=== PATIENT | female | born 1970 | race Caucasian/White ===

== ENCOUNTER → 2017-08-15 | Outpatient (CLI) | payer OTHER ==
[2015-02-22 15:11] VITALS: BP 141/86
[~2017-08-15] MED LIST: AMIT25TA PO; ASCO10002 PO; ESOM20CA30 PO; MULT1TAB52 PO
--- NOTE | 2017-08-15 12:28 | KCIC ---
Examination: MRI left shoulder without contrast HISTORY: History of osteoarthritis left acromioclavicular joint, left shoulder pain COMPARISON: None available TECHNIQUE: Multiplanar, multisequence MR imaging of the left shoulder were performed without contrast FINDINGS: The long head of biceps tendon is within the bicipital groove. The attachment of the long head of biceps tendon to the glenoid anchor grossly appears intact. Minimal amount of fluid identified in the tendon sheath of the long head of the biceps. The visualized subscapularis tendon, supraspinatus, infraspinatus tendon grossly appears intact. There is mild increased signal identified in the subscapularis, supraspinatus, infraspinatus tendon likely mild tendinosis. The visualized labrum grossly appears unremarkable. Moderate degenerative changes identified in the acromioclavicular joint. Acromion is type II with the inferior aspect of the acromion abutting the superior aspect of the supraspinatus tendon. The muscle bulk grossly appears unremarkable. There is mild obscuration of fat in the interval. IMPRESSION: 1. Mild tendinosis the rotator cuff. 2. Moderate degenerative changes acromioclavicular joint. The inferior aspect of the acromion abuts the superior aspect of the supraspinatus tendon. Correlate for impingement. 3. Minimal obscuration of fat in the rotator interval. Correlate for adhesive capsulitis. Electronically signed by: Jason Steven MD (08/15/2017 12:25 PM) [facility] [place]
== END | disposition home or self-care (01) ==
LOC: KCIC MRI 10:49
PROVIDERS: ATTEND Orthopaedic Surgery
DX: M19.012 Primary osteoarthritis, left shoulder (principal)
CPT/HCPCS: 73221

== ENCOUNTER → 2020-04-18 | Outpatient (CLI) | payer BC, OTHER ==
[2018-09-16 12:00] VITALS: BP 98/56
[~2020-04-18] MED LIST changes: +ASCO100019 PO; -ASCO10002 PO; +ASPI-630 PO; +ASPI325T11 PO; +ATOR40TA59 PO; +CALC-102 PO; +CITA40TA5 PO; +CLOP75TA PO; +EMPA25TA PO; +ESTR1PAT10 TP; +FENO160T PO; +FOLI1TAB35 PO; +GLIP5TAB10 PO; +INSU100I13 SQ; +ISOS30TA4 PO; +METF10007 PO; +METH-364 PO; +METO25TA4 PO; +MULT-445 PO; -MULT1TAB52 PO; +OMEG1CAP6 PO; +OMEP40CA45 PO; +PROG100C15 PO
--- NOTE | 2020-04-18 11:12 | CARD ---
MR#: [id number] Date of Study: 04/18/2020 Ordering Physician: JEM MURCIA, Referring Physician: JEM MURCIA, Tech: Stephanie Gruber [facility] APPROVED REPORT EXAM: Two-dimensional and M-mode echocardiogram with Doppler and color Doppler. Other Information Quality : GoodHR: 88bpm Rhythm : NSR INDICATION Dizziness and Vertigo RISK FACTORS Hyperlipidemia Diabetes 2D DIMENSIONS RVDd2.7 (2.9-3.5cm)Left Atrium(2D)4.0 (1.6-4.0cm) IVSd1.0 (0.7-1.1cm)Aortic Root(2D)3.2 (2.0-3.7cm) LVDd3.7 (3.9-5.9cm)LVOT Diameter2.1 (1.8-2.4cm) PWd1.0 (0.7-1.1cm)LVDs2.5 (2.5-4.0cm) FS (%) 32.0 %SV35.0 ml LVEF(%)60.9 (>50%) Aortic Valve AoV Peak Abner.115.8cm/sAoV VTI23.2cm AO Peak GR.5.4mmHgLVOT Peak Abner.110.9cm/s AO Mean GR.3mmHgAVA (VMAX)3.30cm2 Mitral Valve MV E Uusxnemw11.0cm/sMV DECEL [id number] MV A Nearxorh56.3cm/sE/A Ratio0.8 MV A [id number] Pulmonary Valve PV Peak Ebmzouig43.6cm/s Pulmonary Vein S1 Vlyssnwl43.9cm/sD2 Otijsdsp61.4cm/s PVa [id number] LEFT VENTRICLE The left ventricle is normal size. There is normal left ventricular wall thickness. The left ventricu lar systolic function is normal. The Ejection fraction is 60-65% There is normal LV segmental wall mo tion. The left ventricular diastolic function and filling is normal for age. RIGHT VENTRICLE The right ventricle is normal size. There is normal right ventricular wall thickness. The right ventr icular systolic function is normal. ATRIA The left atrium size is normal. The right atrium size is normal. The interatrial septum is intact wit h no evidence for an atrial septal defect or patent foramen ovale as noted on 2-D or Doppler imaging. AORTIC VALVE The aortic valve is normal in structure and function. Doppler and Color Flow revealed no significant aortic regurgitation. There is no significant aortic valvular stenosis. MITRAL VALVE The mitral valve is normal in structure and function. There is no evidence of mitral valve prolapse. There is no mitral valve stenosis. Doppler and Color Flow revealed no mitral valve regurgitation note d. TRICUSPID VALVE The tricuspid valve is normal in structure and function. Doppler and Color Flow revealed no tricuspid valve regurgitation noted. There is no tricuspid valve stenosis. PULMONIC VALVE The pulmonary valve is normal in structure and function. Doppler and Color Flow revealed no pulmonic valvular regurgitation. GREAT VESSELS The aortic root is normal in size. The ascending aorta is normal in size. The pulmonary artery is nor mal. The IVC is normal in size and collapses >50% with inspiration. PERICARDIAL EFFUSION There is no evidence of significant pericardial effusion. Critical Notification Critical Value: No <Conclusion> The left ventricular systolic function is normal. The Ejection fraction is 60-65% There is normal LV segmental wall motion. There is no evidence of significant pericardial effusion. Signed by : Hang Gama, Electronically Approved : 04/18/2020 11:11:40
== END ==
LOC: ECHO 09:48
PROVIDERS: ATTEND Internal Medicine Cardiovascular Disease
DX: I25.10 Atherosclerotic heart disease of native coronary artery without angina pectoris (principal)
CPT/HCPCS: 93306

== ENCOUNTER 2020-07-09 16:55 | Inpatient (IN) | payer BC, OTHER ==
[~2020-07-09] VITALS: Ht 162.6 cm; Wt 72.1 kg
--- NOTE | 2020-07-09 17:27 | PHYS DOC ---
Past Medical History Past Medical History: Anxiety, CAD, Diabetes-Type II, Hypertension Additional Past Medical Histor: sleep issues Past Surgical History: Appendectomy Additional Past Surgical Histo: tubal ablation Smoking Status: Current Every Day Smoker Alcohol Use: None Drug Use: None General Adult EDM: Chief Complaint: CHEST PAIN HPI: HPI: Patient is a 50 year old female who presented to ER today for evaluation of nausea and chest pressure was seen earlier this morning. Patient is still having pressure sensation in her chest. Patient has history of acid reflux, diabetic, history of coronary disease. Patient had NSTEMI more than a year ago, he was taken to the [facility], she was found to have some blockage however it was not significant enough to be stented. 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 Patient denies any cough or fever, no trouble breathing. She was exposed to a coworker who was positive for COVID-19 2 weeks ago. Patient was tested negative for COVID-19 1 week ago. Review of Systems: Review of Systems: Constitutional: Denies fever or chills. [] Eyes: Denies change in visual acuity. [] HENT: Denies nasal congestion or sore throat. [] Respiratory: Denies cough or shortness of breath. [] Cardiovascular: Positive for chest pain, no edema. GI: Denies abdominal pain, positive for nausea, no vomiting, bloody stools or diarrhea. [] : Denies dysuria. [] Musculoskeletal: Denies back pain or joint pain. [] Integument: Denies rash. [] Neurologic: Denies headache, focal weakness or sensory changes. [] Endocrine: Denies polyuria or polydipsia. [] Lymphatic: Denies swollen glands. [] Psychiatric: Denies depression or anxiety. [] Heart Score: HEART Score for Chest Pain: HEART Score for Chest Pain Response (Comments) Value History Moderately Suspicious 1 ECG Normal 0 Age >45 - < 65 1 Risk Factors >3 Risk Factors or Hx CAD 2 Troponin < Normal Limit 0 Total 4 Risk Factors: Risk Factors: DM, Current or recent (<one month) smoker, HTN, HLP, family hi story of CAD, obesity. Risk Scores: Score 0 - 3: 2.5% MACE over next 6 weeks - Discharge Home Score 4 - 6: 20.3% MACE over next 6 weeks - Admit for Clinical Observation Score 7 - 10: 72.7% MACE over next 6 weeks - Early Invasive Strategies Current Medications: Current Medications Medications (Trade) Dose Ordered Sig/[facility] Start Time Stop Time Status Last Admin Dose Admin Aspirin (Aspirin Chewable) 324 mg 1X ONCE 07/09/20 17:30 07/09/20 17:31 Nitroglycerin (Nitrostat) 0.4 mg PRN Q5MIN PRN 07/09/20 17:30 07/10/20 17:29 Allergies: Allergies: Allergies Coded Allergies Type Severity Reaction Last Updated Verified pear Allergy Severe Swelling 02/22/15 Yes dulaglutide Allergy Intermediate 09/12/18 Yes morphine Allergy Intermediate 09/12/18 Yes Physical Exam: PE: Constitutional: Well developed, well nourished, no acute distress, non-toxic appearance. [] HENT: Normocephalic, atraumatic, bilateral external ears normal, oropharynx moist, no oral exudates, nose normal. [] Eyes: PERRLA, EOMI, conjunctiva normal, no discharge. [] Neck: Normal range of motion, no tenderness, supple, no stridor. [] Cardiovascular:Heart rate regular rhythm, no murmur [] Lungs & Thorax: Bilateral breath sounds clear to auscultation [] Abdomen: Bowel sounds normal, soft, no tenderness, no masses, no pulsatile mass es. [] Skin: Warm, dry, no erythema, no rash. [] Back: No tenderness, no CVA tenderness. [] Extremities: No tenderness, no cyanosis, no clubbing, ROM intact, no edema. [] Neurologic: Alert and oriented X 3, normal motor function, normal sensory function, no focal deficits noted. [] Psychologic: Affect normal, judgement normal, mood normal. [] Current Patient Data: Labs: Laboratory Tests Test 07/09/20 17:10 White Blood Count 12.2 x10^3/uL Red Blood Count 4.52 x10^6/uL Hemoglobin 14.0 g/dL Hematocrit 41.5 % Mean Corpuscular Volume 92 fL Mean Corpuscular Hemoglobin 31 pg Mean Corpuscular Hemoglobin Concent 34 g/dL Red Cell Distribution Width 13.4 % Platelet Count 355 x10^3/uL Neutrophils (%) (Auto) 51 % Lymphocytes (%) (Auto) 37 % Monocytes (%) (Auto) 9 % Eosinophils (%) (Auto) 3 % Basophils (%) (Auto) 1 % Neutrophils # (Auto) 6.2 x10^3/uL Lymphocytes # (Auto) 4.5 x10^3/uL Monocytes # (Auto) 1.0 x10^3/uL Eosinophils # (Auto) 0.4 x10^3/uL Basophils # (Auto) 0.1 x10^3/uL Prothrombin Time 11.9 SEC Prothromb Time International Ratio 0.9 Sodium Level 135 mmol/L Potassium Level 4.0 mmol/L Chloride Level 98 mmol/L Carbon Dioxide Level 25 mmol/L Anion Gap 12 Blood Urea Nitrogen 15 mg/dL Creatinine 0.8 mg/dL Estimated GFR (Cockcroft-Gault) 76.2 BUN/Creatinine Ratio 19 Glucose Level 271 mg/dL Calcium Level 10.2 mg/dL Magnesium Level 2.0 mg/dL Total Bilirubin 0.1 mg/dL Aspartate Amino Transf (AST/SGOT) 12 U/L Alanine Aminotransferase (ALT/SGPT) 20 U/L Alkaline Phosphatase 84 U/L Troponin I Quantitative < 0.017 ng/mL [id number]-[id number]-Type Natriuretic Peptide 12 pg/mL Total Protein 7.8 g/dL Albumin 4.0 g/dL Albumin/Globulin Ratio 1.1 Lipase 151 U/L Current Medications Medications (Trade) Dose Ordered Sig/[place] Route PRN Reason Start Time Stop Time Status Last Admin Dose Admin Aspirin (Aspirin Chewable) 324 mg 1X ONCE PO 07/09/20 17:30 07/09/20 17:31 DC 07/09/20 17:51 Nitroglycerin (Nitrostat) 0.4 mg PRN Q5MIN PRN SL CP RATING > 09/0407/09/20 17:30 07/10/20 17:29 07/09/20 17:53 Ketorolac Tromethamine (Toradol 15mg Vial) 15 mg 1X ONCE IVP 07/09/20 18:00 07/09/20 18:01 DC 07/09/20 18:00 Ondansetron HCl (Zofran) 4 mg 1X ONCE IVP 07/09/20 18:00 07/09/20 18:01 DC 07/09/20 18:00 EKG: EKG: EKG was done at 1705, heart rate of 81 beats per minutes, sinus rhythm, no ST segment elevation, normal QT and QTc interval. Radiology/Procedures: Radiology/Procedures: [][facility] [address] [place] [address] IMAGING REPORT Signed PATIENT: RADU RAMON EACCOUNT: [id number] : 1970 LOCATION: ER AGE: 50 SEX: F EXAM STATUS: PRE ER ORD. PHYSICIAN: TIMUR OTERO DO REASON: chest pain PROCEDURE: PORTABLE CHEST 1V Exam: Chest one view INDICATION: Chest pain TECHNIQUE: Frontal view of the chest Comparisons: 09/12/2018 FINDINGS: The cardiomediastinal silhouette and pulmonary vessels are within normal limits. The lung and pleural spaces are clear. IMPRESSION: No acute cardiopulmonary process. Electronically signed by: Brodie Meredith MD (07/09/2020 5:35 PM) [id number] DICTATED and SIGNED BY: BRODIE MEREDITH MD DATE: 07/09/20 1735 Course & Med Decision Making: Course & Med Decision Making Pertinent Labs and Imaging studies reviewed. (See chart for details) Patient is a 50-year-old female who presented to ER with substernal chest pain, her EKG and lab work came back normal so far. With her risks, will admit her to hospital for observation. Discussed with Dr. Connors. Isaak Disclaimer: Isaak Disclaimer: This electronic medical record was generated, in whole or in part, using a voice recognition dictation system. Departure Departure Impression: Primary Impression: Chest pain Disposition: ADMITTED INPT THIS HOSP Condition: STABLE Referrals: UNKNOWN PCP NAME (PCP) TIMUR OTERO DO Jul 09, 2020 17:27
[2020-07-09] MEDS ORDERED: ASPIRIN CHEWABLE 81 MG TABLET. PO ONE (17:30)
[2020-07-09] MEDS ORDERED: NITROGLYCERIN SUBLINGUAL 0.4 MG BOTTLE OF 25. SL PRN (17:30)
[2020-07-09 17:31] LABS: BASO # 0.1 x10^3/uL (0.0-0.2); BASO % 1 % (0-3); EOS # 0.4 x10^3/uL (0.0-0.7); EOS % 3 % (0-3); HEMATOCRIT 41.5 % (36.0-47.0); LYMPH # 4.5 x10^3/uL (1.0-4.8); LYMPH % 37 % (24-48); MEAN CORPUSCULAR HEMOGLOBIN 31 pg (25-35); MEAN CORPUSCULAR HGB CONC 34 g/dL (31-37); MEAN CORPUSCULAR VOLUME 92 fL (79-100); MONO % 9 % (0-9); NEUT # 6.2 x10^3/uL (1.8-7.7); NEUT % 51 % (31-73); PLATELET COUNT 355 x10^3/uL (140-400); RED BLOOD COUNT 4.52 x10^6/uL (3.50-5.40); RED CELL DISTRIBUTION WIDTH 13.4 % (11.5-14.5); WHITE BLOOD COUNT 12.2 x10^3/uL (4.0-11.0)
[2020-07-09 17:38] LABS: PROTHROMBIN TIME PATIENT 11.9 SEC (11.7-14.0)
--- NOTE | 2020-07-09 17:38 | RAD ---
Exam: Chest one view INDICATION: Chest pain TECHNIQUE: Frontal view of the chest Comparisons: 09/12/2018 FINDINGS: The cardiomediastinal silhouette and pulmonary vessels are within normal limits. The lung and pleural spaces are clear. IMPRESSION: No acute cardiopulmonary process. Electronically signed by: Brodie Escobedo MD (07/09/2020 5:35 PM) [id number]
[2020-07-09 17:40] LABS: CALCIUM 10.2 mg/dL (8.5-10.1); CREATININE 0.8 mg/dL (0.6-1.0); GFR 76.2
[2020-07-09 17:46] LABS: ALBUMIN/GLOBULIN RATIO 1.1 (1.0-1.7); TOTAL BILIRUBIN 0.1 mg/dL (0.2-1.0); TOTAL PROTEIN 7.8 g/dL (6.4-8.2)
[2020-07-09 17:55] LABS: BILIRUBIN,URINE NEGATIVE (NEG); CLARITY,URINE CLEAR; COLOR,URINE YELLOW; NITRITE,URINE NEGATIVE (NEG); PH,URINE 6.5 (<5.0-8.0); PROTEIN,URINE NEGATIVE (NEG-TRACE); UROBILINOGEN,URINE 0.2 mg/dL (0.2 mg/dL)
[2020-07-09] MEDS ORDERED: KETOROLAC 15 MG/ML VIAL. IVP ONE (18:00)
[2020-07-09] MEDS ORDERED: ONDANSETRON PF 4 MG/2 ML VIAL. IVP ONE (18:00)
[2020-07-09 18:05] LABS: BACTERIA,URINE 0 /HPF (0-FEW); RBC,URINE 0 /HPF (0-2); WBC,URINE 0 /HPF (0-4); YEAST,URINE PRESENT /HPF
[2020-07-09] MEDS ORDERED: ONDANSETRON PF 4 MG/2 ML VIAL. IV PRN (18:15)
[2020-07-09] MEDS ORDERED: DEXTROSE 50% 25 GM / 50ML DISP.SYRIN. IV PRN (19:45)
[2020-07-09] MEDS: hydrOXYzine 25 MG TABLET PO PRN (19:52)
[2020-07-09] MEDS: methIMAzole 10 MG TABLET PO SCH (21:20)
[2020-07-09] MEDS: METOPROLOL TART IMMED RELEASE 25 MG TABLET. PO SCH (21:20)
[2020-07-09] MEDS: ATORVASTATIN CALCIUM 40 MG TABLET. PO SCH (21:20)
[2020-07-09] MEDS: ENOXAPARIN 40 MG/0.4 ML SYRINGE. SQ SCH (21:21)
[2020-07-09] MEDS: glipiZIDE 5 MG TABLET PO SCH (21:21)
[2020-07-09] MEDS: ZOLPIDEM 5 MG TABLET. PO PRN ×2 (21:34→21:55)
[2020-07-09] MEDS: INSULIN GLARGINE SYRINGE. SQ SCH (21:37)
[2020-07-09 22:43] LABS: BARBITURATES NEG (NEG); BENZODIAZEPINES NEG (NEG); CANNABINOIDS NEG (NEG); COCAINE NEG (NEG); METHADONE NEG (NEG); OPIATES NEG (NEG); PHENCYCLIDINE NEG (NEG)
[2020-07-09 22:44] LABS: AMPHETAMINE/METHAMPHETAMINE NEG (NEG)
[2020-07-10 03:03] VITALS: BP 123/57
--- NOTE | 2020-07-10 06:35 | PDOC1 ---
History and Physical Date of Admission Date of Admission DATE: 07/10/20 TIME: 06:34 Identification/Chief Complaint Chief Complaint Chest pain Source Source: Patient History of Present Illness History of Present Illness Patient is a 50-year-old female with past medical history of NSTEMI, type 2 diabetes, hyperlipidemia, anxiety, who presents to the ED with complaints of chest pain since yesterday morning. Patient reports constant chest pressure 8/10, with associated nausea. She states her symptoms began while at rest and is worse when laying flat. Her retail custodial associate is Dr. Rangel. She received aspirin 324 mg upon arrival. Of note she states she was exposed to a coworker who was tested positive for COVID-19 2 weeks ago. Patient was tested for COVID- 19 1 week ago and reportedly negative. She denies any shortness of breath, cough, fever, or diarrhea. We have been asked admit patient for further management. WBC 12.2, CBG 371, troponin <0.017 x 2 Past Medical History Cardiovascular: HTN, Hyperlipidemia Pulmonary: No pertinent hx CENTRAL NERVOUS SYSTEM: Other GI: GERD Heme/Onc: No pertinent hx Hepatobiliary: No pertinent hx Psych: Depression Musculoskeletal: Osteoarthritis Rheumatologic: No pertinent hx Infectious disease: No pertinent hx Renal/: No pertinent hx Endocrine: Diabetes, Hyperthyroidism Past Surgical History Past Surgical History: Appendectomy, Tubal Ligation Family History Family History: Coronary Artery Disease, Diabetes, Heart Disease, Stroke Social History Smoke: 1 pack per day ALCOHOL: none Drugs: None Current Problem List Problem List Problems Medical Problems: (1) Chest pain Status: Acute Current Medications Current Medications Current Medications Aspirin (Aspirin Chewable) 324 mg 1X ONCE PO Last administered on 07/09/20at 17:51; Start 07/09/20 at 17:30; Stop 07/09/20 at 17:31; Status DC Nitroglycerin (Nitrostat) 0.4 mg PRN Q5MIN PRN SL CP RATING > 1/10 Last administered on 07/09/20at 17:53; Start 07/09/20 at 17:30; Stop 07/10/20 at 17:29 Ketorolac Tromethamine (Toradol 15mg Vial) 15 mg 1X ONCE IVP Last administered on 07/09/20at 18:00; Start 07/09/20 at 18:00; Stop 07/09/20 at 18:01; Status DC Ondansetron HCl (Zofran) 4 mg 1X ONCE IVP Last administered on 07/09/20at 18:00; Start 07/09/20 at 18:00; Stop 07/09/20 at 18:01; Status DC Ondansetron HCl (Zofran) 4 mg PRN Q8HRS PRN IV NAUSEA/VOMITING; Start 07/09/20 at 18:15; Stop 07/10/20 at 18:14 Aspirin (Aspirin Chewable) 81 mg DAILY PO ; Start 07/10/20 at 09:00 Atorvastatin Calcium (Lipitor) 40 mg QHS PO Last administered on 07/09/20at 21:20; Start 07/09/20 at 21:00 Clopidogrel Bisulfate (Plavix) 75 mg DAILY PO ; Start 07/10/20 at 09:00 Glipizide (Glucotrol) 5 mg BID PO Last administered on 07/09/20at 21:21; Start 07/09/20 at 21:00 Isosorbide Mononitrate (Imdur) 30 mg DAILY PO ; Start 07/10/20 at 09:00 Methimazole (Tapazole) 10 mg BID PO Last administered on 07/09/20at 21:20; Start 07/09/20 at 21:00 Metoprolol Tartrate (Lopressor) 25 mg BID PO Last administered on 07/09/20at 21:20; Start 07/09/20 at 21:00 Fish Oil (Fish Oil) 1,000 mg DAILY PO ; Start 07/10/20 at 09:00 Fenofibrate (Lofibra) 134 mg DAILY PO ; Start 07/10/20 at 09:00 Insulin Glargine (Lantus Syringe) 20 unit QHS SQ Last administered on 07/09/20at 21:37; Start 07/09/20 at 21:00 Pantoprazole Sodium (Protonix) 40 mg DAILYAC PO ; Start 07/10/20 at 07:30 Hydroxyzine HCl (Atarax) 25 mg PRN Q6HRS PRN PO ITCHING Last administered on 07/09/20at 19:52; Start 07/09/20 at 19:45 Insulin Human Lispro (HumaLOG) 0-7 UNITS TIDWMEALS SQ ; Start 07/10/20 at 08:00 Dextrose (Dextrose 50%-Water Syringe) 12.5 gm PRN Q15MIN PRN IV SEE COMMENTS; Start 07/09/20 at 19:45 Enoxaparin Sodium (Lovenox 40mg Syringe) 40 mg Q24H SQ Last administered on 07/09/20at 21:21; Start 07/09/20 at 21:00 Zolpidem Tartrate (Ambien) 5 mg PRN QHS PRN PO INSOMNIA Last administered on 07/09/20at 21:55; Start 07/09/20 at 20:00 Active Scripts Active Lantus Solostar (Insulin Glargine,Hum.rec.anlog) 100 Unit/1 Ml Insuln.pen 20 Unit SQ QHS Metoprolol Tartrate 25 Mg Tablet 25 Mg PO BID MDD 1 Isosorbide Mononitrate Er (Isosorbide Mononitrate) 30 Mg Tab.er.24h 30 Mg PO DAILY MDD 1 Atorvastatin Calcium 40 Mg Tablet 40 Mg PO QHS MDD 1 Reported Aspirin 81 Mg Tab.chew 81 Mg PO DAILY 30 Days Vivelle-Dot (Estradiol) 1 Each Patch.tdsw 1 Patch TP TWICE WEEKLY Glipizide 5 Mg Tablet 1 Tab PO BID Jardiance (Empagliflozin) 25 Mg Tablet 25 Mg PO DAILY Prometrium (Progesterone,Micronized) 100 Mg Capsule 1 Cap PO DAILY Omeprazole 40 Mg Capsule.dr 1 Cap PO DAILY Metformin Hcl 1,000 Mg Tablet 1,000 Mg PO DAILYWBKFT Methimazole 10 Mg Tablet 10 Mg PO BID Fenofibrate 160 Mg Tablet 1 Tab PO DAILY Citalopram Hbr (Citalopram Hydrobromide) 40 Mg Tablet 1 Tab PO DAILY Citracal + Bone Density Tablet (Calcium Crb&Cit/D3/Min34/Jenn) 1 Each Tablet 1 Each PO DAILY Allergies Allergies: Coded Allergies: pear (Verified Allergy, Severe, Swelling, 02/22/15) dulaglutide (Verified Allergy, Intermediate, 09/12/18) morphine (Verified Allergy, Intermediate, 09/12/18) ROS Review of System GENERAL: No history of weight change, weakness or fevers. SKIN: No bruising, hair changes or rashes. EYES: No blurred, double or loss of vision. NOSE AND THROAT: No history of nosebleeds, hoarseness or sore throat. HEART: Chest pain. Denies palpitations. LUNGS: Denies cough, hemoptysis, wheezing or shortness of breath. GASTROINTESTINAL: Nausea. Denies vomiting, abdominal pain. GENITOURINARY: Denies dysuria, frequency, urgency, hematuria. NEUROLOGIC: Denies history of numbness, tingling, tremor or weakness. PSYCHIATRIC: Denies anxiety, denies depression. ENDOCRINE: No history of heat or cold intolerance, polyuria or polydipsia. EXTREMITIES: Denies muscle weakness, joint pain, pain on walking or stiffness. Physical Exam Physical Exam General: Alert, Oriented X3, Cooperative, No acute distress HEENT: PERRLA, EOMI Lungs: Clear to auscultation, Normal air movement Heart: RRR, no murmurs Cardiovascular: S1, S2 Abdomen: Normal bowel sounds, Soft, No tenderness Extremities: No clubbing, No cyanosis Skin: No rashes, No significant lesion Neuro: Normal speech, Normal tone, Sensation intact Psych/Mental Status: Mental status NL, Mood NL Vitals Vitals Vital Signs Date Time Temp Pulse Resp B/P (MAP) Pulse Ox O2 Delivery O2 Flow Rate FiO2 07/10/20 03:03 98.5 74 16 123/57 (79) 95 Room Air 98.5 Labs Labs Laboratory Tests Test 07/09/20 17:10 07/09/20 17:47 07/09/20 21:30 07/09/20 22:00 White Blood Count 12.2 x10^3/uL (4.0-11.0) Red Blood Count 4.52 x10^6/uL (3.50-5.40) Hemoglobin 14.0 g/dL (12.0-15.5) Hematocrit 41.5 % (36.0-47.0) Mean Corpuscular Volume 92 fL (79-100) Mean Corpuscular Hemoglobin 31 pg (25-35) Mean Corpuscular Hemoglobin Concent 34 g/dL (31-37) Red Cell Distribution Width 13.4 % (11.5-14.5) Platelet Count 355 x10^3/uL (140-400) Neutrophils (%) (Auto) 51 % (31-73) Lymphocytes (%) (Auto) 37 % (24-48) Monocytes (%) (Auto) 9 % (0-9) Eosinophils (%) (Auto) 3 % (0-3) Basophils (%) (Auto) 1 % (0-3) Neutrophils # (Auto) 6.2 x10^3/uL (1.8-7.7) Lymphocytes # (Auto) 4.5 x10^3/uL (1.0-4.8) Monocytes # (Auto) 1.0 x10^3/uL (0.0-1.1) Eosinophils # (Auto) 0.4 x10^3/uL (0.0-0.7) Basophils # (Auto) 0.1 x10^3/uL (0.0-0.2) Prothrombin Time 11.9 SEC (11.7-14.0) Prothromb Time International Ratio 0.9 (0.8-1.1) Sodium Level 135 mmol/L (136-145) Potassium Level 4.0 mmol/L (3.5-5.1) Chloride Level 98 mmol/L (98-107) Carbon Dioxide Level 25 mmol/L (21-32) Anion Gap 12 (6-14) Blood Urea Nitrogen 15 mg/dL (7-20) Creatinine 0.8 mg/dL (0.6-1.0) Estimated GFR (Cockcroft-Gault) 76.2 BUN/Creatinine Ratio 19 (6-20) Glucose Level 271 mg/dL (70-99) Calcium Level 10.2 mg/dL (8.5-10.1) Magnesium Level 2.0 mg/dL (1.8-2.4) Total Bilirubin 0.1 mg/dL (0.2-1.0) Aspartate Amino Transf (AST/SGOT) 12 U/L (15-37) Alanine Aminotransferase (ALT/SGPT) 20 U/L (14-59) Alkaline Phosphatase 84 U/L (46-116) Troponin I Quantitative < 0.017 ng/mL (0.000-0.055) UD-Pdj-D-Type Natriuretic Peptide 12 pg/mL (0-124) Total Protein 7.8 g/dL (6.4-8.2) Albumin 4.0 g/dL (3.4-5.0) Albumin/Globulin Ratio 1.1 (1.0-1.7) Lipase 151 U/L (73-393) Thyroid Stimulating Hormone (TSH) 0.688 uIU/mL (0.358-3.74) Urine Collection Type Unknown Urine Color Yellow Urine Clarity Clear Urine pH 6.5 (<5.0-8.0) Urine Specific [place] 1.015 (1.000-1.030) Urine Protein Negative mg/dL (NEG-TRACE) Urine Glucose (UA) >=1000 mg/dL (NEG) Urine Ketones (Stick) Negative mg/dL (NEG) Urine Blood Negative (NEG) Urine Nitrite Negative (NEG) Urine Bilirubin Negative (NEG) Urine Urobilinogen Dipstick 0.2 mg/dL (0.2 mg/dL) Urine Leukocyte Esterase Negative (NEG) Urine RBC 0 /HPF (0-2) Urine WBC 0 /HPF (0-4) Urine Squamous Epithelial Cells Occ /LPF Urine Bacteria 0 /HPF (0-FEW) Urine Yeast Present /HPF Glucose (Fingerstick) 371 mg/dL (70-99) Urine Opiates Screen Neg (NEG) Urine Methadone Screen Neg (NEG) Urine Barbiturates Neg (NEG) Urine Phencyclidine Screen Neg (NEG) Urine Amphetamine/Methamphetamine Neg (NEG) Urine Benzodiazepines Screen Neg (NEG) Urine Cocaine Screen Neg (NEG) Urine Cannabinoids Screen Neg (NEG) Urine Ethyl Alcohol Neg (NEG) Test 07/09/20 23:05 Troponin I Quantitative < 0.017 ng/mL (0.000-0.055) Laboratory Tests Test 07/09/20 17:10 07/09/20 17:47 07/09/20 21:30 07/09/20 22:00 White Blood Count 12.2 x10^3/uL (4.0-11.0) Red Blood Count 4.52 x10^6/uL (3.50-5.40) Hemoglobin 14.0 g/dL (12.0-15.5) Hematocrit 41.5 % (36.0-47.0) Mean Corpuscular Volume 92 fL (79-100) Mean Corpuscular Hemoglobin 31 pg (25-35) Mean Corpuscular Hemoglobin Concent 34 g/dL (31-37) Red Cell Distribution Width 13.4 % (11.5-14.5) Platelet Count 355 x10^3/uL (140-400) Neutrophils (%) (Auto) 51 % (31-73) Lymphocytes (%) (Auto) 37 % (24-48) Monocytes (%) (Auto) 9 % (0-9) Eosinophils (%) (Auto) 3 % (0-3) Basophils (%) (Auto) 1 % (0-3) Neutrophils # (Auto) 6.2 x10^3/uL (1.8-7.7) Lymphocytes # (Auto) 4.5 x10^3/uL (1.0-4.8) Monocytes # (Auto) 1.0 x10^3/uL (0.0-1.1) Eosinophils # (Auto) 0.4 x10^3/uL (0.0-0.7) Basophils # (Auto) 0.1 x10^3/uL (0.0-0.2) Prothrombin Time 11.9 SEC (11.7-14.0) Prothromb Time International Ratio 0.9 (0.8-1.1) Sodium Level 135 mmol/L (136-145) Potassium Level 4.0 mmol/L (3.5-5.1) Chloride Level 98 mmol/L (98-107) Carbon Dioxide Level 25 mmol/L (21-32) Anion Gap 12 (6-14) Blood Urea Nitrogen 15 mg/dL (7-20) Creatinine 0.8 mg/dL (0.6-1.0) Estimated GFR (Cockcroft-Gault) 76.2 BUN/Creatinine Ratio 19 (6-20) Glucose Level 271 mg/dL (70-99) Calcium Level 10.2 mg/dL (8.5-10.1) Magnesium Level 2.0 mg/dL (1.8-2.4) Total Bilirubin 0.1 mg/dL (0.2-1.0) Aspartate Amino Transf (AST/SGOT) 12 U/L (15-37) Alanine Aminotransferase (ALT/SGPT) 20 U/L (14-59) Alkaline Phosphatase 84 U/L (46-116) Troponin I Quantitative < 0.017 ng/mL (0.000-0.055) GZ-Lsh-C-Type Natriuretic Peptide 12 pg/mL (0-124) Total Protein 7.8 g/dL (6.4-8.2) Albumin 4.0 g/dL (3.4-5.0) Albumin/Globulin Ratio 1.1 (1.0-1.7) Lipase 151 U/L (73-393) Thyroid Stimulating Hormone (TSH) 0.688 uIU/mL (0.358-3.74) Urine Collection Type Unknown Urine Color Yellow Urine Clarity Clear Urine pH 6.5 (<5.0-8.0) Urine Specific [place] 1.015 (1.000-1.030) Urine Protein Negative mg/dL (NEG-TRACE) Urine Glucose (UA) >=1000 mg/dL (NEG) Urine Ketones (Stick) Negative mg/dL (NEG) Urine Blood Negative (NEG) Urine Nitrite Negative (NEG) Urine Bilirubin Negative (NEG) Urine Urobilinogen Dipstick 0.2 mg/dL (0.2 mg/dL) Urine Leukocyte Esterase Negative (NEG) Urine RBC 0 /HPF (0-2) Urine WBC 0 /HPF (0-4) Urine Squamous Epithelial Cells Occ /LPF Urine Bacteria 0 /HPF (0-FEW) Urine Yeast Present /HPF Glucose (Fingerstick) 371 mg/dL (70-99) Urine Opiates Screen Neg (NEG) Urine Methadone Screen Neg (NEG) Urine Barbiturates Neg (NEG) Urine Phencyclidine Screen Neg (NEG) Urine Amphetamine/Methamphetamine Neg (NEG) Urine Benzodiazepines Screen Neg (NEG) Urine Cocaine Screen Neg (NEG) Urine Cannabinoids Screen Neg (NEG) Urine Ethyl Alcohol Neg (NEG) Test 07/09/20 23:05 Troponin I Quantitative < 0.017 ng/mL (0.000-0.055) Images Images Exam: Chest one view INDICATION: Chest pain TECHNIQUE: Frontal view of the chest Comparisons: 09/12/2018 FINDINGS: The cardiomediastinal silhouette and pulmonary vessels are within normal limits. The lung and pleural spaces are clear. IMPRESSION: No acute cardiopulmonary process. VTE Prophylaxis Ordered VTE Prophylaxis Devices: No VTE Pharmacological Prophylaxi: Yes Assessment/Plan Assessment/Plan Unstable angina DM2 with hyperglycemia HLD History of NSTEMI Plan: High risk cardiac patient Consult to cardiology for further management and recommendations Troponins negative x2 Will obtain stat surgical COVID-19 due to recent exposure and anticipated cardiac intervention Fentanyl as needed for pain, stated morphine allergy. Nitroglycerin, Zofran as needed Basal/prandial insulin Continue home medications FEN - Cardiac diet PPX - Lovenox FULL CODE Dispo - inpatient for above Justifications for Admission Other Justification SAM WINKLER MD Jul 10, 2020 06:35
[2020-07-10] MEDS ORDERED: fentaNYL PF VIAL 100 MCG/2 ML VIAL IVP PRN (06:45)
[2020-07-10] MEDS: hydrOXYzine 25 MG TABLET PO PRN ×3 (06:47→21:18)
[2020-07-10 07:15] VITALS: BP 128/57
[2020-07-10] MEDS: PANTOPRAZOLE 40 MG TABLET.DR. PO SCH (08:49)
[2020-07-10] MEDS: ASPIRIN CHEWABLE 81 MG TABLET. PO SCH (08:49)
[2020-07-10] MEDS: OMEGA-3 FATTY ACIDS/FISH OIL 1,000 MG CAPSULE. PO SCH (08:49)
[2020-07-10] MEDS: FENOFIBRATE,MICRONIZED 134 MG CAPSULE PO SCH (08:49)
[2020-07-10] MEDS: METOPROLOL TART IMMED RELEASE 25 MG TABLET. PO SCH ×2 (08:50→21:19)
[2020-07-10] MEDS: ISOSORBIDE MONONITRATE ER 30 MG TAB.ER.24H PO SCH (08:50)
[2020-07-10] MEDS: ENOXAPARIN 40 MG/0.4 ML SYRINGE. SQ SCH (08:51)
[2020-07-10] MEDS ORDERED: CLOPIDOGREL BISULFATE 75 MG TABLET PO SCH (09:00)
[2020-07-10] MEDS: methIMAzole 10 MG TABLET PO SCH ×2 (10:14→21:18)
[2020-07-10] MEDS: glipiZIDE 5 MG TABLET PO SCH ×2 (10:14→21:19)
[2020-07-10] MEDS: INSULIN LISPRO 300 UNITS/3 ML VIAL. SQ SCH ×3 (10:17→16:38)
[2020-07-10 10:42] VITALS: BP 105/63
[2020-07-10] MEDS: diazePAM 5 MG TABLET PO PRN ×2 (12:05→21:19)
[2020-07-10] MEDS: HYDROcodone/APAP 5/325MG 1 TAB TABLET PO PRN ×3 (12:05→21:19)
--- NOTE | 2020-07-10 14:06 | EKG ---
[facility] [address] [place] [address] Test Date: 2020-07-09 Test Time: 17:05:34 Pat Name: RADU RAMON Department: Room: 206 1 Gender: F [employer]: : 1970 Requested By: TIMUR OTERO Order Number: [id number] Reading MD: Fabian Rangel MD Measurements Intervals [place] Rate: 81 P: 45 HI: 158 QRS: -7 QRSD: 80 T: 31 QT: 360 QTc: 424 Interpretive Statements SINUS RHYTHM SEPTAL INFARCT PATTERN, NO ACUTE FINDINGS Electronically Signed On 07-11-2020 10:45:11 PUPPY SITTER by Fabian Rangel MD
[2020-07-10 14:27] VITALS: BP 115/52
--- NOTE | 2020-07-10 14:48 | PDOC2 ---
CONSULT Date of Consult Date of Consult DATE: 07/10/20 TIME: 14:42 Reason for Consult Reason for Consult: Chest pain Referring Physician Referring Physician: Dr. Connors Identification/Chief Complaint Chief Complaint Chest pain Source Source: Chart review, Patient History of Present Illness Reason for Visit: The patient is a 50-year-old female who presented to the emergency room with several hours worth of chest pain and nausea. The patient's EKG showed no acute ischemic changes. Chest x-ray showed no acute processes. Initial troponin was normal. She was treated medically and has felt better overnight with her pain resolving. She does have a history of a non-ST elevated myocardial infarction in August 2018. A catheterization at that time showed an ejection fraction of 55% with an LAD lesion of 50 to 60% with a normal FFR study. Patient was treated medically. More recently an echocardiogram on 04-18-20 showed an ejectio n fraction of 60 to 65%. Patient is resting pain-free in bed at this time. Past Medical History Cardiovascular: CAD, HTN, Hyperlipidemia Pulmonary: No pertinent hx CENTRAL NERVOUS SYSTEM: Other GI: GERD Heme/Onc: No pertinent hx Hepatobiliary: No pertinent hx Psych: Depression Musculoskeletal: Osteoarthritis Rheumatologic: No pertinent hx Infectious disease: No pertinent hx Renal/: No pertinent hx Endocrine: Diabetes, Hyperthyroidism Past Surgical History Past Surgical History: Appendectomy, Tubal Ligation Family History Family History: Coronary Artery Disease, Diabetes, Heart Disease, Stroke Social History 1 pack per day ALCOHOL: none Drugs: None Lives: with Family Current Problem List Problem List Problems Medical Problems: (1) Chest pain Status: Acute Current Medications Current Medications Current Medications Aspirin (Aspirin Chewable) 324 mg 1X ONCE PO Last administered on 07/09/20at 17:51; Start 07/09/20 at 17:30; Stop 07/09/20 at 17:31; Status DC Nitroglycerin (Nitrostat) 0.4 mg PRN Q5MIN PRN SL CP RATING > 1/10 Last administered on 07/09/20at 17:53; Start 07/09/20 at 17:30; Stop 07/10/20 at 17:29 Ketorolac Tromethamine (Toradol 15mg Vial) 15 mg 1X ONCE IVP Last administered on 07/09/20at 18:00; Start 07/09/20 at 18:00; Stop 07/09/20 at 18:01; Status DC Ondansetron HCl (Zofran) 4 mg 1X ONCE IVP Last administered on 07/09/20at 18:00; Start 07/09/20 at 18:00; Stop 07/09/20 at 18:01; Status DC Ondansetron HCl (Zofran) 4 mg PRN Q8HRS PRN IV NAUSEA/VOMITING; Start 07/09/20 at 18:15; Stop 07/10/20 at 18:14 Aspirin (Aspirin Chewable) 81 mg DAILY PO Last administered on 07/10/20 08:49; Start 07/10/20 at 09:00 Atorvastatin Calcium (Lipitor) 40 mg QHS PO Last administered on 07/09/20 21:20; Start 07/09/20 at 21:00 Clopidogrel Bisulfate (Plavix) 75 mg DAILY PO Last administered on 07/10/20 08:50; Start 07/10/20 at 09:00 Glipizide (Glucotrol) 5 mg BID PO Last administered on 07/10/20at 10:14; Start 07/09/20 at 21:00 Isosorbide Mononitrate (Imdur) 30 mg DAILY PO Last administered on 07/10/20 08:50; Start 07/10/20 at 09:00 Methimazole (Tapazole) 10 mg BID PO Last administered on 07/10/20at 10:14; Start 07/09/20 at 21:00 Metoprolol Tartrate (Lopressor) 25 mg BID PO Last administered on 07/10/20at 08:50; Start 07/09/20 at 21:00 Fish Oil (Fish Oil) 1,000 mg DAILY PO Last administered on 07/10/20at 08:49; Start 07/10/20 at 09:00 Fenofibrate (Lofibra) 134 mg DAILY PO Last administered on 07/10/20at 08:49; Start 07/10/20 at 09:00 Insulin Glargine (Lantus Syringe) 20 unit QHS SQ Last administered on 07/09/20at 21:37; Start 07/09/20 at 21:00 Pantoprazole Sodium (Protonix) 40 mg DAILYAC PO Last administered on 07/10/20at 08:49; Start 07/10/20 at 07:30 Hydroxyzine HCl (Atarax) 25 mg PRN Q6HRS PRN PO ITCHING Last administered on 07/10/20at 06:47; Start 07/09/20 at 19:45 Insulin Human Lispro (HumaLOG) 0-7 UNITS TIDWMEALS SQ Last administered on 07/10/20at 12:07; Start 07/10/20 at 08:00 Dextrose (Dextrose 50%-Water Syringe) 12.5 gm PRN Q15MIN PRN IV SEE COMMENTS; Start 07/09/20 at 19:45 Enoxaparin Sodium (Lovenox 40mg Syringe) 40 mg Q24H SQ Last administered on 07/10/20at 08:51; Start 07/09/20 at 21:00 Zolpidem Tartrate (Ambien) 5 mg PRN QHS PRN PO INSOMNIA Last administered on 07/09/20at 21:55; Start 07/09/20 at 20:00 Fentanyl Citrate (Fentanyl 2ml Vial) 50 mcg PRN Q2HR PRN IVP PAIN; Start 07/10/20 at 06:45 Diazepam (Valium) 5 mg PRN Q8HRS PRN PO ANXIETY Last administered on 07/10/20at 12:05; Start 07/10/20 at 11:00 Acetaminophen/ Hydrocodone Bitart (Lortab 5/325) 1 tab PRN Q4HRS PRN PO PAIN Last administered on 07/10/20at 12:05; Start 07/10/20 at 11:00 Active Scripts Active Lantus Solostar (Insulin Glargine,Hum.rec.anlog) 100 Unit/1 Ml Insuln.pen 20 Unit SQ QHS Metoprolol Tartrate 25 Mg Tablet 25 Mg PO BID MDD 1 Isosorbide Mononitrate Er (Isosorbide Mononitrate) 30 Mg Tab.er.24h 30 Mg PO DAILY MDD 1 Atorvastatin Calcium 40 Mg Tablet 40 Mg PO QHS MDD 1 Reported Aspirin 81 Mg Tab.chew 81 Mg PO DAILY 30 Days Vivelle-Dot (Estradiol) 1 Each Patch.tdsw 1 Patch TP TWICE WEEKLY Glipizide 5 Mg Tablet 1 Tab PO BID Jardiance (Empagliflozin) 25 Mg Tablet 25 Mg PO DAILY Prometrium (Progesterone,Micronized) 100 Mg Capsule 1 Cap PO DAILY Omeprazole 40 Mg Capsule.dr 1 Cap PO DAILY Metformin Hcl 1,000 Mg Tablet 1,000 Mg PO DAILYWBKFT Methimazole 10 Mg Tablet 10 Mg PO BID Fenofibrate 160 Mg Tablet 1 Tab PO DAILY Citalopram Hbr (Citalopram Hydrobromide) 40 Mg Tablet 1 Tab PO DAILY Citracal + Bone Density Tablet (Calcium Crb&Cit/D3/Min34/Jenn) 1 Each Tablet 1 Each PO DAILY Allergies Allergies: Coded Allergies: pear (Verified Allergy, Severe, Swelling, 02/22/15) dulaglutide (Verified Allergy, Intermediate, 09/12/18) morphine (Verified Allergy, Intermediate, 09/12/18) ROS Respiratory: YES: SOB with excertion Cardiovascular: yes Chest Pain Gastrointestinal: Yes Nausea Physical Exam General: No acute distress HEENT: Atraumatic Lungs: Clear to auscultation Heart: Regular rate Abdomen: Normal bowel sounds Vitals VITALS Vital Signs Date Time Temp Pulse Resp B/P (MAP) Pulse Ox O2 Delivery O2 Flow Rate FiO2 07/10/20 14:27 98.0 69 16 115/52 (73) 98 Room Air 98.0 Labs Labs Laboratory Tests Test 07/09/20 17:10 07/09/20 17:47 07/09/20 21:30 07/09/20 22:00 White Blood Count 12.2 x10^3/uL (4.0-11.0) Red Blood Count 4.52 x10^6/uL (3.50-5.40) Hemoglobin 14.0 g/dL (12.0-15.5) Hematocrit 41.5 % (36.0-47.0) Mean Corpuscular Volume 92 fL (79-100) Mean Corpuscular Hemoglobin 31 pg (25-35) Mean Corpuscular Hemoglobin Concent 34 g/dL (31-37) Red Cell Distribution Width 13.4 % (11.5-14.5) Platelet Count 355 x10^3/uL (140-400) Neutrophils (%) (Auto) 51 % (31-73) Lymphocytes (%) (Auto) 37 % (24-48) Monocytes (%) (Auto) 9 % (0-9) Eosinophils (%) (Auto) 3 % (0-3) Basophils (%) (Auto) 1 % (0-3) Neutrophils # (Auto) 6.2 x10^3/uL (1.8-7.7) Lymphocytes # (Auto) 4.5 x10^3/uL (1.0-4.8) Monocytes # (Auto) 1.0 x10^3/uL (0.0-1.1) Eosinophils # (Auto) 0.4 x10^3/uL (0.0-0.7) Basophils # (Auto) 0.1 x10^3/uL (0.0-0.2) Prothrombin Time 11.9 SEC (11.7-14.0) Prothromb Time International Ratio 0.9 (0.8-1.1) Sodium Level 135 mmol/L (136-145) Potassium Level 4.0 mmol/L (3.5-5.1) Chloride Level 98 mmol/L (98-107) Carbon Dioxide Level 25 mmol/L (21-32) Anion Gap 12 (6-14) Blood Urea Nitrogen 15 mg/dL (7-20) Creatinine 0.8 mg/dL (0.6-1.0) Estimated GFR (Cockcroft-Gault) 76.2 BUN/Creatinine Ratio 19 (6-20) Glucose Level 271 mg/dL (70-99) Calcium Level 10.2 mg/dL (8.5-10.1) Magnesium Level 2.0 mg/dL (1.8-2.4) Total Bilirubin 0.1 mg/dL (0.2-1.0) Aspartate Amino Transf (AST/SGOT) 12 U/L (15-37) Alanine Aminotransferase (ALT/SGPT) 20 U/L (14-59) Alkaline Phosphatase 84 U/L (46-116) Troponin I Quantitative < 0.017 ng/mL (0.000-0.055) VR-Tno-T-Type Natriuretic Peptide 12 pg/mL (0-124) Total Protein 7.8 g/dL (6.4-8.2) Albumin 4.0 g/dL (3.4-5.0) Albumin/Globulin Ratio 1.1 (1.0-1.7) Lipase 151 U/L (73-393) Thyroid Stimulating Hormone (TSH) 0.688 uIU/mL (0.358-3.74) Urine Collection Type Unknown Urine Color Yellow Urine Clarity Clear Urine pH 6.5 (<5.0-8.0) Urine Specific Padroni 1.015 (1.000-1.030) Urine Protein Negative mg/dL (NEG-TRACE) Urine Glucose (UA) >=1000 mg/dL (NEG) Urine Ketones (Stick) Negative mg/dL (NEG) Urine Blood Negative (NEG) Urine Nitrite Negative (NEG) Urine Bilirubin Negative (NEG) Urine Urobilinogen Dipstick 0.2 mg/dL (0.2 mg/dL) Urine Leukocyte Esterase Negative (NEG) Urine RBC 0 /HPF (0-2) Urine WBC 0 /HPF (0-4) Urine Squamous Epithelial Cells Occ /LPF Urine Bacteria 0 /HPF (0-FEW) Urine Yeast Present /HPF Glucose (Fingerstick) 371 mg/dL (70-99) Urine Opiates Screen Neg (NEG) Urine Methadone Screen Neg (NEG) Urine Barbiturates Neg (NEG) Urine Phencyclidine Screen Neg (NEG) Urine Amphetamine/Methamphetamine Neg (NEG) Urine Benzodiazepines Screen Neg (NEG) Urine Cocaine Screen Neg (NEG) Urine Cannabinoids Screen Neg (NEG) Urine Ethyl Alcohol Neg (NEG) Test 07/09/20 23:05 07/10/20 06:58 07/10/20 11:17 Troponin I Quantitative < 0.017 ng/mL (0.000-0.055) Glucose (Fingerstick) 165 mg/dL (70-99) 174 mg/dL (70-99) Laboratory Tests Test 07/09/20 17:10 07/09/20 17:47 07/09/20 21:30 07/09/20 22:00 White Blood Count 12.2 x10^3/uL (4.0-11.0) Red Blood Count 4.52 x10^6/uL (3.50-5.40) Hemoglobin 14.0 g/dL (12.0-15.5) Hematocrit 41.5 % (36.0-47.0) Mean Corpuscular Volume 92 fL (79-100) Mean Corpuscular Hemoglobin 31 pg (25-35) Mean Corpuscular Hemoglobin Concent 34 g/dL (31-37) Red Cell Distribution Width 13.4 % (11.5-14.5) Platelet Count 355 x10^3/uL (140-400) Neutrophils (%) (Auto) 51 % (31-73) Lymphocytes (%) (Auto) 37 % (24-48) Monocytes (%) (Auto) 9 % (0-9) Eosinophils (%) (Auto) 3 % (0-3) Basophils (%) (Auto) 1 % (0-3) Neutrophils # (Auto) 6.2 x10^3/uL (1.8-7.7) Lymphocytes # (Auto) 4.5 x10^3/uL (1.0-4.8) Monocytes # (Auto) 1.0 x10^3/uL (0.0-1.1) Eosinophils # (Auto) 0.4 x10^3/uL (0.0-0.7) Basophils # (Auto) 0.1 x10^3/uL (0.0-0.2) Prothrombin Time 11.9 SEC (11.7-14.0) Prothromb Time International Ratio 0.9 (0.8-1.1) Sodium Level 135 mmol/L (136-145) Potassium Level 4.0 mmol/L (3.5-5.1) Chloride Level 98 mmol/L (98-107) Carbon Dioxide Level 25 mmol/L (21-32) Anion Gap 12 (6-14) Blood Urea Nitrogen 15 mg/dL (7-20) Creatinine 0.8 mg/dL (0.6-1.0) Estimated GFR (Cockcroft-Gault) 76.2 BUN/Creatinine Ratio 19 (6-20) Glucose Level 271 mg/dL (70-99) Calcium Level 10.2 mg/dL (8.5-10.1) Magnesium Level 2.0 mg/dL (1.8-2.4) Total Bilirubin 0.1 mg/dL (0.2-1.0) Aspartate Amino Transf (AST/SGOT) 12 U/L (15-37) Alanine Aminotransferase (ALT/SGPT) 20 U/L (14-59) Alkaline Phosphatase 84 U/L (46-116) Troponin I Quantitative < 0.017 ng/mL (0.000-0.055) UB-Zhs-M-Type Natriuretic Peptide 12 pg/mL (0-124) Total Protein 7.8 g/dL (6.4-8.2) Albumin 4.0 g/dL (3.4-5.0) Albumin/Globulin Ratio 1.1 (1.0-1.7) Lipase 151 U/L (73-393) Thyroid Stimulating Hormone (TSH) 0.688 uIU/mL (0.358-3.74) Urine Collection Type Unknown Urine Color Yellow Urine Clarity Clear Urine pH 6.5 (<5.0-8.0) Urine Specific Padroni 1.015 (1.000-1.030) Urine Protein Negative mg/dL (NEG-TRACE) Urine Glucose (UA) >=1000 mg/dL (NEG) Urine Ketones (Stick) Negative mg/dL (NEG) Urine Blood Negative (NEG) Urine Nitrite Negative (NEG) Urine Bilirubin Negative (NEG) Urine Urobilinogen Dipstick 0.2 mg/dL (0.2 mg/dL) Urine Leukocyte Esterase Negative (NEG) Urine RBC 0 /HPF (0-2) Urine WBC 0 /HPF (0-4) Urine Squamous Epithelial Cells Occ /LPF Urine Bacteria 0 /HPF (0-FEW) Urine Yeast Present /HPF Glucose (Fingerstick) 371 mg/dL (70-99) Urine Opiates Screen Neg (NEG) Urine Methadone Screen Neg (NEG) Urine Barbiturates Neg (NEG) Urine Phencyclidine Screen Neg (NEG) Urine Amphetamine/Methamphetamine Neg (NEG) Urine Benzodiazepines Screen Neg (NEG) Urine Cocaine Screen Neg (NEG) Urine Cannabinoids Screen Neg (NEG) Urine Ethyl Alcohol Neg (NEG) Test 07/09/20 23:05 07/10/20 06:58 07/10/20 11:17 Troponin I Quantitative < 0.017 ng/mL (0.000-0.055) Glucose (Fingerstick) 165 mg/dL (70-99) 174 mg/dL (70-99) Images Images Chest x-ray shows no acute processes. Assessment/Plan Assessment/Plan 1. Chest pain. Patient's pain has resolved. Initial 2 troponins are normal. She has no acute ischemic EKG changes. Catheterization in August 2018 showed an LAD lesion of 50 to 60% with a normal FFR study. We will continue medical treatment. Will complete rule out. Will increase activities. 2. Hyperlipidemia. We will continue present treatments and check lab. 3. Diabetes mellitus. Again continue home medications. 4. History of acid reflux. We will check baseline medications and continue. 5. Borderline hypertension. We will continue to monitor. Thank you for allowing us to participate in the care of your patient. PASTOR ROSALES MD Jul 10, 2020 14:48
[2020-07-10 19:00] VITALS: BP 107/55
[2020-07-10] MEDS: ATORVASTATIN CALCIUM 40 MG TABLET. PO SCH (21:18)
[2020-07-10] MEDS: ZOLPIDEM 5 MG TABLET. PO PRN (21:19)
[2020-07-10] MEDS: INSULIN GLARGINE SYRINGE. SQ SCH (21:24)
[2020-07-10 22:57] VITALS: BP 119/59
[2020-07-10] MEDS ORDERED: NICOTINE 21MG PATCH. TD PRN (23:00)
[2020-07-11 02:54] VITALS: BP 117/56
[2020-07-11] MEDS: HYDROcodone/APAP 5/325MG 1 TAB TABLET PO PRN (06:02)
[2020-07-11 06:09] LABS: CHOLESTEROL/HDL RATIO 5.2
[2020-07-11 07:00] VITALS: BP 116/58
[2020-07-11] MEDS: INSULIN LISPRO 300 UNITS/3 ML VIAL. SQ SCH ×2 (08:00→12:00)
[2020-07-11] MEDS: diazePAM 5 MG TABLET PO PRN (08:50)
[2020-07-11] MEDS: PANTOPRAZOLE 40 MG TABLET.DR. PO SCH (08:50)
[2020-07-11 10:37] VITALS: BP 122/59
--- NOTE | 2020-07-11 10:45 | PDOC ---
CIATLIN KIM FRAMING MECHANIC 07/11/20 1044: CARDIO Progress Notes Date and Time Date of Service 07/11/20 Time of Evaluation 1040 Subjective Subjective: No Chest Pain, No shortness of breath, No Palpitations Vitals Vitals Vital Signs Date Time Temp Pulse Resp B/P (MAP) Pulse Ox O2 Delivery O2 Flow Rate FiO2 07/11/20 08:00 Room Air 07/11/20 07:46 95 07/11/20 07:00 98.1 73 18 116/58 (77) 98.1 Weight Weight [ ] Input and Output Intake and Output Intake and Output 07/11/20 07:00 Intake Total 1200 ml Output Total 400 ml Balance 800 ml Intake Oral 1200 ml Output Urine Total 400 ml # Voids 2 Laboratory Labs Laboratory Tests Test 07/10/20 11:17 07/10/20 16:13 07/10/20 20:02 07/11/20 05:10 Glucose (Fingerstick) 174 mg/dL (70-99) 329 mg/dL (70-99) 342 mg/dL (70-99) Triglycerides Level 358 mg/dL (0-150) Cholesterol Level 209 mg/dL (0-200) LDL Cholesterol, Calculated 97 mg/dL (0-100) VLDL Cholesterol, Calculated 72 mg/dL (0-40) Non-HDL Cholesterol Calculated 169 mg/dL (0-129) HDL Cholesterol 40 mg/dL (40-60) Cholesterol/HDL Ratio 5.2 Test 07/11/20 07:30 Glucose (Fingerstick) 207 mg/dL (70-99) Physical Exam HEENT: Neck Supple W Full Motion Chest: Symmetric LUNGS: Clear to Auscultation Heart: RRR Abdomen: Soft N/T Extremities: No Edema Neurology: alert, oriented, follow commands Assessment Assessment 1. Chest pain, mixed features; AMI ruled out 2. CAD; cath 09/13 with one vessel CAD involving proximal LAD 3. Hypertension; controlled 4. Hyperlipidemia; LDL 97 5. Diabetes, II 6. GERD 7. Anxiety Recommendations Secondary prevention measures including ASA/Plavix, statin, Imdur, metoprolol Risk stratification modification Discuss further ischemic evaluation with stress test versus cardiac cath given chest pain and history of moderate one-vessel CAD. Patient would like further ischemic evaluation with stress test and would like to be discharged and have this conducted on an outpatient setting. Will schedule outpatient MPI and follow up with Dr. Rangel as scheduled Justicifation of Admission Dx: Justifications for Admission: Justification of Admission Dx: Yes JEM RANGEL MD 07/11/20 1743: CARDIO Progress Notes Plan Plan Pt. seen and examined. Agree with above PARTY PLAN DEALER note. Discussed r/b/a to cath, stress etc. Patient wants conservative mgmt with MPI, which is reasonable given no recurrent pain while in hospital, normal EKG and enzymes. She has NTG and imdur at home. Supportive care. Continue risk factor modification. Thanks CAITLIN KIM APRN Jul 11, 2020 10:44 JEM RANGEL MD Jul 11, 2020 17:43
--- NOTE | 2020-07-11 11:14 | DISCH ---
DISCHARGE INSTRUCTIONS Condition on Discharge Condition on Discharge: Stable Activity After Discharge Activity Instructions for Disc: Resume previous activity Bathing Instructions: Shower-keep dressing dry, No Tub Bath until see Lifting Instructions after Dis: No heavy lifting, Do not lift >10 pounds Weight Bearing Status after Di: No restrictions Diet after Discharge Diet after Discharge: Cardiac Checks after Discharge Checks after discharge: Check blood press - daily, Check blood sugar, ac/hs Follow-Up Follow up with: PCP within 2 weeks of discharge Follow Up With: Dr. Rangel for further cardiac evaluation GÓMEZ ROBLES MD Jul 11, 2020 11:14
--- NOTE | 2020-07-11 11:20 | NUR ---
SS following for discharge planning. SS reviewed pt chart and discussed with pt RN. Pt is from home with spouse and is currently on room air. Discharge order on the chart for home with self care.
[2020-07-11] MEDS: OMEGA-3 FATTY ACIDS/FISH OIL 1,000 MG CAPSULE. PO SCH (11:34)
[2020-07-11 11:35] VITALS: BP 122/59
[2020-07-11] MEDS: ASPIRIN CHEWABLE 81 MG TABLET. PO SCH (11:35)
[2020-07-11] MEDS: glipiZIDE 5 MG TABLET PO SCH (11:35)
[2020-07-11] MEDS: FENOFIBRATE,MICRONIZED 134 MG CAPSULE PO SCH (11:35)
[2020-07-11] MEDS: methIMAzole 10 MG TABLET PO SCH (11:35)
[2020-07-11] MEDS: ISOSORBIDE MONONITRATE ER 30 MG TAB.ER.24H PO SCH (11:35)
[2020-07-11] MEDS: METOPROLOL TART IMMED RELEASE 25 MG TABLET. PO SCH (11:35)
--- NOTE | 2020-07-11 12:32 | NUR ---
Discharge Note: RADU RAMON Discharge instructions and discharge home medications reviewed with Patient and a copy given. All questions have been answered and understanding verbalized. Verablized understanding to follow up with cardiology RADHA.
--- NOTE | 2020-07-11 13:56 | PDOC3 ---
[facility]-Discharge Summary Date of Admission: Date of Admission: Jul 10, 2020 Date of Discharge: Date of Discharge: Jul 11, 2020 Discharge Diagnosis: Discharge Diagnosis: Unstable angina DM2 with hyperglycemia HLD History of NSTEMI Hospital Course: Hospital Course: 50-year-old female with past medical history of NSTEMI, type 2 diabetes, hyperlipidemia, anxiety, who presents to the ED with complaints of chest pain since yesterday morning. Patient reports constant chest pressure 8/10, with associated nausea. She states her symptoms began while at rest and is worse when laying flat. Her sidewalk repairer is Dr. Rangel. She received aspirin 324 mg upon arrival. Of note she states she was exposed to a coworker who was tested positive for COVID-19 2 weeks ago. Patient was tested for COVID-19 1 week ago and reportedly negative. She denies any shortness of breath, cough, fever, or diarrhea. We have been asked admit patient for further management. Patient was admitted for further care and evaluation from cardiology. Patient is currently chest pain-free and responded appropriately with nitroglycerin tablets sublingual. Patient was educated on pain management and outpatient cardiac evaluation. Patient will follow up closely with Dr. Rangel for outpatient cardiac evaluation. Rest of her hospital course was uneventful. Disposition: Disposition/Orders: D/C to Home Activity: Activity: Resume previous activity Diet: Diet: Cardiac, Consistent Carbohydrate Medications: Home Meds Active Scripts Insulin Glargine,Hum.rec.anlog (LANTUS SOLOSTAR) 100 Unit/1 Ml Insuln.pen, 20 UNIT SQ QHS for dm, #15 ML 5 Refills Prov:EBONY BURKS MD 09/15/18 Metoprolol Tartrate (METOPROLOL TARTRATE) 25 Mg Tablet, 25 MG PO BID for hrn cad MDD 1, #60 TAB Prov:EBONY BURKS MD 09/15/18 Isosorbide Mononitrate (ISOSORBIDE MONONITRATE ER) 30 Mg Tab.er.24h, 30 MG PO DAILY for htn MDD 1, #30 TAB.SR Prov:EBONY BURKS MD 09/15/18 Atorvastatin Calcium (ATORVASTATIN CALCIUM) 40 Mg Tablet, 40 MG PO QHS for hlp MDD 1, #30 TAB Prov:EBONY BURKS MD 09/15/18 Reported Medications Aspirin (ASPIRIN) 81 Mg Tab.chew, 81 MG PO DAILY for Dr orders for 30 Days, #30 TAB.CHEW 09/16/18 Estradiol (VIVELLE-DOT) 1 Each Patch.tdsw, 1 PATCH TP TWICE WEEKLY for *, #24 PATCH 3 Refills 09/12/18 Glipizide (GLIPIZIDE) 5 Mg Tablet, 1 TAB PO BID for *, #60 TAB 3 Refills 09/12/18 Empagliflozin (Jardiance) 25 Mg Tablet, 25 MG PO DAILY for *, TAB 09/12/18 Progesterone,Micronized (PROMETRIUM) 100 Mg Capsule, 1 CAP PO DAILY for *, #30 CAP 11 Refills 09/12/18 Omeprazole (OMEPRAZOLE) 40 Mg Capsule.dr, 1 CAP PO DAILY for gerd, #30 CAP 3 Refills 09/12/18 Metformin Hcl (METFORMIN HCL) 1,000 Mg Tablet, 1000 MG PO DAILYWBKFT for ANTI- DIABETIC, TAB 0 Refills 09/12/18 Methimazole (METHIMAZOLE) 10 Mg Tablet, 10 MG PO BID for *, TAB 09/12/18 Fenofibrate (FENOFIBRATE) 160 Mg Tablet, 1 TAB PO DAILY for iron, #30 TAB 5 Refills 09/12/18 Citalopram Hydrobromide (CITALOPRAM HBR) 40 Mg Tablet, 1 TAB PO DAILY for anxiety, #90 TAB 1 Refill 09/12/18 Calcium Crb&Cit/D3/Min34/Jenn (CITRACAL + BONE DENSITY TABLET) 1 Each Tablet, 1 EACH PO DAILY for bone health, TAB 09/12/18 Scheduled Aspirin (Aspirin), 81 MG PO DAILY, (Reported) Atorvastatin Calcium (Atorvastatin Calcium), 40 MG PO QHS Calcium Crb&Cit/D3/Min34/Jenn (Citracal + Bone Density Tablet), 1 EACH PO DAILY, (Reported) Citalopram Hydrobromide (Citalopram Hbr), 1 TAB PO DAILY, (Reported) Empagliflozin (Jardiance), 25 MG PO DAILY, (Reported) Estradiol (Vivelle-Dot), 1 PATCH TP TWICE WEEKLY, (Reported) Fenofibrate (Fenofibrate), 1 TAB PO DAILY, (Reported) Glipizide (Glipizide), 1 TAB PO BID, (Reported) Insulin Glargine,Hum.rec.anlog (Lantus Solostar), 20 UNIT SQ QHS Isosorbide Mononitrate (Isosorbide Mononitrate Er), 30 MG PO DAILY Metformin Hcl (Metformin Hcl), 1,000 MG PO DAILYWBKFT, (Reported) Methimazole (Methimazole), 10 MG PO BID, (Reported) Metoprolol Tartrate (Metoprolol Tartrate), 25 MG PO BID Omeprazole (Omeprazole), 1 CAP PO DAILY, (Reported) Progesterone,Micronized (Prometrium), 1 CAP PO DAILY, (Reported) Total Time: Total Time: Total time spent was 35 minutes in preparing scripts, discharge planning with SWI and RN and preparing this discharge summary Patient seen and examined on day of discharge. No acute abnormal findings. Justicifation of Admission Dx: Justifications for Admission: Justification of Admission Dx: Yes Angina: New-Onset GÓMEZ SIEGEL MD Jul 11, 2020 13:56
== END 2020-07-11 12:25 | disposition home or self-care (01) | DRG 303 ==
LOC: ER 18:15 → ED HOLD 18:56 → OBSVTOIN 18:56 → INTOOBSV 18:56 → 2 NORTH 20:22 → OBSVTOIN 07-10 22:48
PROVIDERS: ADMIT Internal Medicine; ATTEND Internal Medicine
DX: I25.110 Atherosclerotic heart disease of native coronary artery with unstable angina pectoris (principal); E11.65 Type 2 diabetes mellitus with hyperglycemia; E78.5 Hyperlipidemia, unspecified; F17.210 Nicotine dependence, cigarettes, uncomplicated; F41.9 Anxiety disorder, unspecified; I10 Essential (primary) hypertension; I25.2 Old myocardial infarction; K21.9 Gastro-esophageal reflux disease without esophagitis; Z82.3 Family history of stroke; Z82.49 Family history of ischemic heart disease and other diseases of the circulatory system; Z83.3 Family history of diabetes mellitus; Z90.49 Acquired absence of other specified parts of digestive tract; F32.9 Major depressive disorder, single episode, unspecified; M19.90 Unspecified osteoarthritis, unspecified site; Z88.8 Allergy status to other drugs, medicaments and biological substances; Z98.51 Tubal ligation status
CPT/HCPCS: 36415; 71045; 80053; 80061; 80307; 81001; 82962; 83690; 83735; 83880; 84443; 84484; 85025; 85610; 93005; G0378; G0379; J1650; J1815; J1885; J2405

== ENCOUNTER → 2020-07-25 | Outpatient (CLI) | payer BC, OTHER ==
[2020-07-11 11:35] VITALS: BP 122/59
[~2020-07-25] MED LIST changes: +REGADENOSON 0.4 MG/5 ML DISP.SYRIN. IV ONE
--- NOTE | 2020-07-25 15:05 | RAD ---
MR#: [id number] Date of Study: 07/25/2020 Ordering Physician: JEM RANGEL, Referring Physician: CRISTIANO CARTAGENA Tech: TESHA Vásquez, MOHIT (R) (N) APPROVED REPORT Test Type: Pharmacological Stress Nurse/Tech: Lizy Almonte R.N. Test Indications: Chest pain Cardiac History: Hypertension, smoker, DM, MD - no stents 1 yr ago Medications: See Electronic Medical Record Medical History: See Electronic Medical Record Resting ECG: SR w/ flat or inverted T waves in leads AVL and V2 Resting Heart Rate: 79 bpm Resting Blood Pressure: 123/59mmHg Pretest Chest Pain: No chest pain Nurse/Tech Notes S1S2, lungs CTA Consent: The procedure was explained to the patient in lay terms. Informed consent was witnessed. Maikel eout was entered into [employer]. History and Stress Test performed by RT Rey NúñezR) (N) Pharm. Details Pharmacologic stress testing was performed using 0.4mg per 5ml of regadenoson given intravenously ove r 7-10 seconds. Stress Symptoms SOA, nausea and h/a POST EXERCISE Reason for Termination: Infusion complete Max HR: 109 bpm Max Blood Pressure: 129/61mmHg Blood Pressure response to exercise: Normal blood pressure response during stress. Heart Rate response to exercise: wnl Chest Pain: No. Arrhythmia: No. ST Change: No. INTERPRETATION Stress EKG Conclusion: No evidence of stress induced EKG changes. Imaging Protocol IMAGE PROTOCOL: Rest Tc-99m/stress Tc-99m 1 day Rest: Stress: Viability: Radiopharm.Tc99m [id number] Sestamibi Dose10.6mCi 33mCi Img Date 07/25/2020 07/25/2020 Inj-Img [id number]. 60min. Rest Admin Site:IV - Right AntecubitalAdministrator:TESHA Vásquez, MOHIT (R)(N) Stress Admin Site: IV - Right AntecubitalAdministrator: RT Constantine Núñez)(N) STRESS DATA End Diast. Vol.69.0mlAv. Heart Rate92.0bpm End Syst. Vol.5.0mlCO Index BSA0.0L/min Myocardial Belt934.0gEject. Fldvgxgu03.0% Stress Rates Pk. Fill Rate3.72EDV/secLVtime Pk. Fill 159.51msec Pk. Empty Rate4.53ESV/secLVtime Pk. Vscrt402.44msec 1/3 Pk. Fill1.58EDV/sec Stress Scores Regional WT0.00Summed WT0.00 Regional WM0.00Summed WM0.00 The rest and stress images show normal perfusion, normal contraction and thickening. LV Perf. Quant 17 Seg. SSS0.00 17 Seg. SRS0.00 17 Seg. SDS0.00 Stress Defect Extent (% LAD)0.00Rest Defect Extent (% LAD)0.00Rev. Defect Extent (% LAD)0.00 Stress Defect Extent (% LCX) 0.00Rest Defect Extent (% LCX)0.00Rev. Defect Extent (% LCX)0.00 Stress Defect Extent (% RCA)0.00Rest Defect Extent (% RCA)0.00Rev. Defect Extent (% RCA)0.00 Stress Defect Extent (% ATIF)0.00Rest Defect Extent (% ATIF)0.00Rev. Defect Extent (% ATIF)0.00 Other Information Quality:Average Risk Assessment: Low Risk Conclusion 1. No evidence of EKG changes with stress testing. 2. Normal perfusion at stress/rest. 3. Low risk study. 4. EF > 60%. Signed by : Jem Rangel, Electronically Approved : 07/25/2020 15:05:00
== END ==
LOC: NM 08:58
PROVIDERS: ATTEND Internal Medicine Cardiovascular Disease
DX: I25.10 Atherosclerotic heart disease of native coronary artery without angina pectoris (principal); I10 Essential (primary) hypertension; I25.2 Old myocardial infarction; Z87.891 Personal history of nicotine dependence
CPT/HCPCS: 78452; 93017; A9500; J2785